=== PATIENT | male | born 1955 | race Caucasian/White ===

== ENCOUNTER → 2023-02-23 | Outpatient (CLI) | payer MEDICARE, OTHER, MEDICAID | END | disposition home or self-care (01) | LOC: CT 11:00 | PROVIDERS: ATTEND Internal Medicine Cardiovascular Disease | DX: Z12.2 Encounter for screening for malignant neoplasm of respiratory organs (principal); D73.9 Disease of spleen, unspecified; J43.9 Emphysema, unspecified; F17.210 Nicotine dependence, cigarettes, uncomplicated ==